=== PATIENT | male | born 1965 | race Hispanic/Latino ===

== ENCOUNTER → 2018-08-29 | Outpatient (CLI) | payer OTHER | END | disposition home or self-care (01) | LOC: OIH 12:37 | PROVIDERS: ATTEND Internal Medicine Critical Care Medicine | DX: Z13.6 Encounter for screening for cardiovascular disorders (principal) | CPT/HCPCS: 75571 ==

== ENCOUNTER → 2020-11-26 | Outpatient (CLI) | payer OTHER | END | disposition home or self-care (01) | LOC: OIH 12:38 | PROVIDERS: ATTEND Physician Assistant | DX: Z13.6 Encounter for screening for cardiovascular disorders (principal) | CPT/HCPCS: 75571 ==

== ENCOUNTER 2021-09-28 09:48 | Day surgery (SDC) | payer BC ==
[~2021-09-28] VITALS: Ht 177.8 cm; Wt 70.8 kg
[~2021-09-28 09:48] MED LIST: 0.9%NACL 1000ML 1,000 ML IV ONE; ASPI-1197 PO; MIRTAZAPINE PO; MV-M1TAB20 PO
[2021-09-28 09:50] VITALS: BP 113/86
[2021-09-28] MEDS ORDERED: QUESL4 PO (10:27)
[2021-09-28] MEDS ORDERED: PROPOFOL 10 MG/ML 20ML VIAL IV ONE (11:45)
[2021-09-28 12:10] VITALS: BP 103/46
[2021-09-28 12:15] VITALS: BP 96/54
[2021-09-28 12:20] VITALS: BP 105/56
[2021-09-28 12:55] VITALS: BP 130/72
== END 2021-09-28 12:56 | disposition home or self-care (01) ==
LOC: ENDO 09:48 → DAH 09:48 → ENDO 12:56
PROVIDERS: ATTEND Internal Medicine Gastroenterology
DX: K58.0 Irritable bowel syndrome with diarrhea (principal); Z20.822 Contact with and (suspected) exposure to COVID-19; K92.1 Melena; K31.7 Polyp of stomach and duodenum; K31.89 Other diseases of stomach and duodenum; K22.89 Other specified disease of esophagus; Z88.0 Allergy status to penicillin; Z79.82 Long term (current) use of aspirin; Z79.899 Other long term (current) drug therapy; Z98.890 Other specified postprocedural states
CPT/HCPCS: 36415; 43239; 45380; 82784; 83516; 87635; A4215 ×2; A4221; A4222; A4223; A4606; A4620; A4663; C9803; J2704; J7030